=== PATIENT | female | born 1935 | race Caucasian/White ===

== ENCOUNTER 2016-07-27 08:22 | Emergency (ER) | payer MEDICARE, OTHER ==
[2016-07-27] MEDS ORDERED: OPTIRAY 350 100 ML VIAL HMH IV ONE (08:54)
[2016-07-27] MEDS ORDERED: SODIUM CHLORIDE 0.9% 1,000 ML ONE (09:23)
== END 2016-07-27 11:59 | disposition home or self-care (01) ==
LOC: ER 08:53
DX: A04.7 Enterocolitis due to Clostridium difficile (principal); I10 Essential (primary) hypertension; E78.00 Pure hypercholesterolemia, unspecified; C96.9 Malignant neoplasm of lymphoid, hematopoietic and related tissue, unspecified; Z79.82 Long term (current) use of aspirin; Z79.899 Other long term (current) drug therapy
CPT/HCPCS: 36415; 74177; 80053; 81003; 83690; 85025; 87045; 87046; 87493; 96360; 96361; 99285; Q9967